=== PATIENT | female | born 1980 ===

== ENCOUNTER 2017-02-14 17:36 | Emergency (ER) | payer MEDICAID, OTHER ==
[2017-02-14 17:37] VITALS: BMI 26.9
[2017-02-14 17:54] VITALS: BP 149/81; PULSE 80; RESP 18; TEMP 98.1; O2SAT 100
--- NOTE | 2017-02-14 18:22 | ED PDOC ---
HPI: Skin/Bite Injury Time Seen by Provider: 02/14/17 17:39 Chief Complaint (Nursing): Upper Extremity Problem/Injury Chief Complaint (Provider): Right Thumb "Blister" History Per: Patient, Family (daughter) History/Exam Limitations: no limitations Onset/Duration Of Symptoms: Days (x1 year), Worse Since (x2 weeks) Current Symptoms Are (Timing): Still Present Location Of Injury: Right: Hand (at base of thumb), Anterior: Hand Quality Of Symptoms: Painful, Draining Additional Complaint(s): Jeanette Ruvalcaba is a 36 year old female, with no pertinent past medical history, who presents to the ED on 02/14/17, accompanied by her daughter, for the evaluation of a "blister" that she has had at the base of her right thumb x1 year. Patient states that the wound had initially been dry, but that 2 weeks ago she had scraped it while cleaning, causing it to bleed. Yesterday she had noted some "yellow discharge" on the bandaid which she had placed over the wound, prompting ED visit. Denies fever/chills and reports cleaning area regularly with soap/water. PMD: none Past Medical History Reviewed: Historical Data, Nursing Documentation, Vital Signs Vital Signs: Last Vital Signs Temp 98.1 F 02/14/17 17:52 Pulse 80 02/14/17 17:52 Resp 18 02/14/17 17:52 BP 149/81 02/14/17 17:52 Pulse Ox 100 02/14/17 18:25 - Medical History PMH: No Chronic Diseases Denies: Diabetes, Hepatitis, HIV, HTN, Seizures, Sexually Transmitted Disease - Surgical History Surgical History: No Surg Hx - Family History Family History: States: Unknown Family Hx - Living Arrangements Living Arrangements: With Family - Home Medications Home Medications: Ambulatory Orders Medication Instructions Recorded Cephalexin [cephalexin] 500 mg PO BID #20 cap 02/14/17 - Allergies Allergies/Adverse Reactions: Allergies Allergy/AdvReac Type Severity Reaction Status Date / Time No Known Allergies Allergy Verified 06/11/16 02:44 Review of Systems Constitutional: Negative for: Fever, Chills Skin: Positive for: Other ("blister" at base of right thumb) Physical Exam - Reviewed Nursing Documentation Reviewed: Yes Vital Signs Reviewed: Yes - Physical Exam Appears: Positive for: Non-toxic, No Acute Distress Extremity: Positive for: Normal ROM (FROM of all fingers on right hand), Other ( 0.25cm round lesion with red granular tissue noted at base of right thumb; no active bleeding/drainage or signs of acute infection) Neurologic/Psych: Positive for: Alert, Oriented - ECG O2 Sat by Pulse Oximetry: 100 (RA) Pulse Ox Interpretation: Normal Medical Decision Making Medical Decision Makin:39 Initial Impression: skin lesion of hand 18:19 Patient is medically stable and requires no emergent treatment in the ED at this time. Patient will be discharged home with Rx for Keflex. Counseling was provided and all questions were answered regarding diagnosis and need for follow up with the referred hand specialist for further evaluation/treatment. There is agreement to discharge plan. Return if symptoms persist or worsen. Clinical Impression: skin lesion of hand Scribe Attestation: Documented by Britt Claire, acting as a scribe for Gertrude Martinez PA-C. Provider Scribe Attestation: All medical record entries made by the Scribe were at my direction and personally dictated by me. I have reviewed the chart and agree that the record accurately reflects my personal performance of the history, physical exam, medical decision making, and the department course for this patient. I have also personally directed, reviewed, and agree with the discharge instructions and disposition. Disposition - Clinical Impression Clinical Impression: Skin lesion of hand - Patient ED Disposition Is Patient to be Admitted: No Counseled Patient/Family Regarding: Diagnosis, Need For Followup, Rx Given - Disposition Referrals: Mino Loyd MD [Medical Doctor] - Disposition: Routine/Home Disposition Time: 18:19 Condition: STABLE Prescriptions: Cephalexin [cephalexin] 500 mg PO BID #20 cap Instructions: Excision of Skin Lesion (GEN)
== END 2017-02-14 18:50 | disposition home or self-care (01) ==
LOC: H.ER 17:36
DX: L98.9 Disorder of the skin and subcutaneous tissue, unspecified (principal)